=== PATIENT | female | born 1990 | race Caucasian/White ===

== ENCOUNTER 2019-03-21 07:36 | Inpatient (IN) | payer MEDICAID, OTHER ==
[2019-03-21] MEDS ORDERED: LACTATED RINGERS 1,000 ML ONE (08:29)
[2019-03-21] MEDS ORDERED: PITOCin/NS 20 UNIT/1000ML DRIP 20,000 MILLIUNITS/1,000 ML BAG IV ONE (08:30)
[2019-03-21] MEDS ORDERED: XYLOCAINE 2% INFILTRATI ONE (08:37)
[2019-03-21] MEDS ORDERED: MINERAL OIL PO PRN ×2 (08:37→10:30)
[2019-03-21] MEDS ORDERED: BRETHINE SUB-Q PRN ×2 (08:37→10:30)
[2019-03-21] MEDS ORDERED: BRETHINE IVP PRN ×2 (08:37→10:30)
--- NOTE | 2019-03-21 08:37 | History and Physical Report ---
History of Present Illness Date of examination: 03/21/19 Chief complaint: Labor History of present illness: Pt is a 28yo HF EDC 04/04/19; EGA 38 0/7 weeks presents to L&D complaining of RUC's q 3-4 mins and dilated 8cms. She received care at [facility] since 13 weeks and care was unremarkable. records are available and GBS is positive. Past History Past Medical History: no pertinent history Past Surgical History: no surgical history Social history: no significant social history, single - Obstetrical History Expected Date of Delivery: 04/04/19 Actual Gestation: 38 Week(s) 0 Day(s) : 3 Medications and Allergies Allergies Allergy/AdvReac Type Severity Reaction Status Date / Time No Known Allergies Allergy Unverified 01/18/15 01:34 Home Medications Medication Instructions Recorded Confirmed Last Taken Type Acetaminophen/Codeine 1 tab PO Q6H PRN #14 tab 01/18/15 Unknown Rx [Acetaminophen-Codeine #3 TAB] Ibuprofen [Motrin] 400 mg PO Q8H PRN #30 tablet 01/18/15 Unknown Rx Ondansetron [Zofran Odt] 4 mg PO Q6H #14 tab.rapdis 01/18/15 Unknown Rx Review of Systems All systems: negative - Vital Signs Vital signs: Vital Signs Pulse BP Pulse Ox 91 H 138/97 98 03/21/19 07:52 03/21/19 07:52 03/21/19 07:52 Temp Pulse Resp BP Pulse Ox 99.1 F 85 20 116/67 95 03/21/19 08:13 03/21/19 08:29 03/21/19 08:13 03/21/19 08:29 03/21/19 08:15 - Physical Exam Abdomen: Positive: normal appearance, soft Genitourinary (Female): Positive: normal external genitalia Uterus: Positive: enlarged - Obstetrical FHR: category 1 Uterine Contraction Monitor Mode: External Cervical Dilatation: 8 Cervical Effacement Percentage: 70 station: -1 Uterine Contraction Pattern: Regular Uterine Tone Measurement Phase: Contraction Uterine Contraction Intensity: Moderate Results Result Diagrams: 03/21/19 08:05 All other labs normal. Assessment and Plan - Patient Problems (1) 38 weeks gestation of Onset Date: 03/21/19 Current Visit: Yes Status: Acute Plan to address problem: A: IUP @ 38 0/7 weeks +GBS P: Admit to L&D for expectant vaginal delivery IV Ampicillin (2) GBS (group B Streptococcus carrier), +RV culture, currently Onset Date: 03/21/19 Current Visit: Yes Status: Acute
[2019-03-21 08:58] LABS: Hemoglobin 11.9 gm/dl (10.1-14.3); Mean Corpuscular HGB Conc 34 % (30-34); Mean Corpuscular Volume 90 fl (79-97); Platelet Count 206 K/mm3 (140-440); Red Blood Count 3.87 M/mm3 (3.65-5.03); Red Cell Distribution Width 13.4 % (13.2-15.2)
[2019-03-21] MEDS ORDERED: PITOCin/NS 30 UNIT/500ML 30 UNITS/500 ML BAG IV SCH ×2 (09:00)
[2019-03-21] MEDS ORDERED: LACTATED RINGERS 1,000 ML IV SCH ×2 (09:00)
[2019-03-21] MEDS ORDERED: PITOCin/NS 20 UNIT/1000ML DRIP 20 UNITS/1,000 ML BAG IV SCH ×3 (09:00→14:00)
[2019-03-21] MEDS ORDERED: XYLOCAINE 2% INFILTRATI NR (10:00)
[2019-03-21] MEDS ORDERED: STADOL IV PRN (10:30)
[2019-03-21] MEDS ORDERED: SUBLIMAZE IV PRN (10:30)
[2019-03-21] MEDS ORDERED: PHENERGAN PO PRN ×2 (10:30→13:28)
[2019-03-21] MEDS ORDERED: ZOFRAN IV PRN ×2 (10:30→13:28)
[2019-03-21] MEDS ORDERED: AMPICILLIN/NS 2 GM/100 ML 2 GM/100 ML BAG IV ONE (10:30)
[2019-03-21] MEDS ORDERED: METHERGINE IM ONE ×3 (11:19→15:40)
[2019-03-21] MEDS ORDERED: AMPICILLIN/NS 1 GM/50 ML 1 GM/50 ML BAG IV SCH (12:30)
--- NOTE | 2019-03-21 13:24 | Procedure Note ---
OB Delivery Note - Delivery Date of Delivery: 03/21/19 Surgeon: RIGO GARCIA Estimated blood loss: 300cc - Vaginal Delivery presentation: vertex Delivery position: OA Intrapartum events: PROM->1hr before delivery, meconium Delivery induction: none Delivery augmentation: rupture of membranes Delivery monitor: external FHT, external uterine Route of delivery: vacuum extraction Indicators for instrumentation: nonreassuring FHR tracing Delivery placenta: spontaneous Delivery cord: 3 umbilical vessels Episiotomy: none Delivery laceration: 2nd degree (perineal) Delivery repair: vicryl Anesthesia: local Delivery comments: Infant delivered OA with the aid of a vacuum, 2 pulls, no pop-offs, and placed on Mom's chest for [id number] bonding and delayed cord clamping, cut by Dad - Infant A at 1 minute: 8 at 5 minutes: 9 Infant Gender: Male ([id number])
[2019-03-21] MEDS ORDERED: TUCKS PAD TP PRN (13:28)
[2019-03-21] MEDS ORDERED: PHENERGAN PR PRN (13:28)
[2019-03-21] MEDS ORDERED: LANSINOH TP PRN (13:28)
[2019-03-21] MEDS ORDERED: TYLENOL PO PRN (13:28)
[2019-03-21] MEDS ORDERED: DULCOLAX PR PRN (13:28)
[2019-03-21] MEDS ORDERED: MILK OF MAGNESIA PO PRN (13:28)
[2019-03-21] MEDS ORDERED: BENADRYL PO PRN (13:28)
[2019-03-21] MEDS: NORCO 5/325 PO PRN (13:48)
[2019-03-21] MEDS ORDERED: SODIUM CHLORIDE FLUSH SYRINGE 10 ML IV SCH (14:00)
[2019-03-21] MEDS: IBUPROFEN PO SCH ×2 (18:27→23:57)
[2019-03-21] MEDS: FEOSOL PO SCH (22:09)
[2019-03-21] MEDS: COLACE PO SCH (22:09)
[2019-03-22 01:20] LABS: Hematocrit 29.8 % (30.3-42.9)
[2019-03-22] MEDS: IBUPROFEN PO SCH ×3 (05:26→20:31)
[2019-03-22] MEDS ORDERED: BOOSTRIX IM ONE (06:00)
--- NOTE | 2019-03-22 09:08 | Progress Note ---
Assessment and Plan A: day 1 S/P VAVD. Anemia secondary to and blood loss. Low back pain, possibly musculoskeletal. P: Continue iron supplementation. Will send urine C&S. Encouraged ambulation and use of pain medication. Subjective - Subjective Date of service: 03/22/19 Principal diagnosis: day 1 S/P VAVD Interval history: day 1 S/P VAVD. Doing well. Patient reports small amount of lochia. Patient is voiding without difficulty, ambulating well, tolerating a regular diet. Patient denies headache, chest pain, cough, shortness of breath, abdominal pain, leg pain, or heavy vaginal bleeding. Patient reports lower back pain. Patient reports: appetite normal, voiding normally, flatus, ambulating normally, no dizzy ambulation, no nauseated [place]: doing well Objective - Vital Signs Latest vital signs: Vital Signs Temp Pulse Resp BP BP Pulse Ox 03/22/19 07:55 98.5 F 76 16 88/51 96 03/22/19 04:20 98.6 F 83 18 118/72 98 03/21/19 23:40 98.3 F 88 18 126/75 98 03/21/19 20:40 98.5 F 90 18 109/61 97 03/21/19 15:00 98.8 F 65 16 128/75 96 03/21/19 14:45 97.2 F L 14 03/21/19 14:12 71 137/85 03/21/19 13:56 75 132/84 03/21/19 13:42 76 132/85 03/21/19 13:32 70 129/80 03/21/19 13:11 70 132/74 03/21/19 12:00 97.9 F 03/21/19 11:20 94 H 92 03/21/19 11:19 90 96 03/21/19 11:15 57 L 73 L 03/21/19 11:14 90 97 03/21/19 11:05 86 99 03/21/19 11:03 86 88 03/21/19 11:00 94 H 96 03/21/19 10:55 84 93 03/21/19 10:50 90 97 03/21/19 10:45 90 98 03/21/19 10:40 89 97 03/21/19 10:35 97 H 99 03/21/19 10:30 93 H 98 03/21/19 10:25 99 H 98 03/21/19 10:20 100 H 97 03/21/19 10:16 90 93 03/21/19 10:15 100 H 98 03/21/19 10:10 95 H 98 03/21/19 10:08 90 93 03/21/19 10:05 101 H 96 03/21/19 10:00 98.8 F 100 H 14 96 03/21/19 09:59 94 H 92 03/21/19 09:55 79 97 03/21/19 09:50 93 H 99 03/21/19 09:48 99 H 94 03/21/19 09:45 91 H 99 Intake and Output 03/21/19 03/22/19 03/22/19 23:59 07:59 15:59 Intake Total 120 120 Balance 120 120 Intake: Oral 120 120 Other: Total, Intake Amount 120 120 # Voids Indwelling Catheter 1 Void 1 1 - Exam Abdomen: Present: normal appearance, soft. Absent: distention, tenderness, guarding, rigidity Uterus: Present: normal, firm, fundal height below umbilicus. Absent: boggin ess, tenderness Extremities: Present: normal. Absent: tenderness, edema - Labs Labs: Abnormal lab results 03/22/19 Range/Units 01:01 Hgb 10.0 L (10.1-14.3) gm/dl Hct 29.8 L (30.3-42.9) %
[2019-03-22] MEDS: FEOSOL PO SCH ×2 (10:12→22:30)
[2019-03-22] MEDS: PRENATAL VITAMIN PO SCH (10:12)
[2019-03-22] MEDS: NORCO 5/325 PO PRN ×2 (10:13→16:42)
[2019-03-22] MEDS: COLACE PO SCH ×2 (10:13→22:30)
[2019-03-22] MEDS ORDERED: M-M-R II VACCINE SUB-Q ONE (13:28)
[2019-03-22 19:50] LABS: Bilirubin,Urine NEG (Negative); Blood,Urine MOD (Negative); Color,Urine Yellow (Yellow); Mucus,Urine FEW /HPF; Protein,Urine <15 mg/dL mg/dL (Negative); Urobilinogen,Urine < 2.0 mg/dL (<2.0)
[2019-03-23] MEDS: IBUPROFEN PO SCH ×2 (03:59→11:45)
[2019-03-23] MEDS: PRENATAL VITAMIN PO SCH (10:27)
[2019-03-23] MEDS: FEOSOL PO SCH (10:27)
[2019-03-23] MEDS: COLACE PO SCH (11:45)
[2019-03-23 15:22] VITALS: BP 105/66
--- NOTE | 2019-03-23 15:27 | Progress Note ---
Assessment and Plan A: day 2 S/P vacuum assisted vaginal delivery. Anemia secondary to and blood loss. P: Discharge patient home today. Discussed with patient in detail discharge instructions and warning signs. Advised patient to avoid intercourse, lifting and heavy housework, driving. Advised patient to follow up at [facility] in 6 weeks for exam. Advised patient to continue taking her vitamin and iron supplements at home. Patient voiced understanding of all instructions. Subjective - Subjective Date of service: 03/23/19 Principal diagnosis: day 2 S/P VAVD Interval history: day 2 S/P VAVD. Doing well. Patient reports small amount of lochia. Patient is voiding without difficulty, ambulating well, tolerating a regular diet. Pt. states lower back pain has resolved. Patient denies headache, chest pain, cough, dizziness, shortness of breath, abdominal pain, nausea or vomiting, leg pain, or heavy vaginal bleeding. Patient reports: appetite normal, voiding normally, pain well controlled, flatus, ambulating normally, no dizzy ambulation, no nauseated [place]: doing well Objective - Vital Signs Latest vital signs: Vital Signs Temp Pulse Resp BP BP Pulse Ox 03/23/19 15:21 98.2 F 69 16 105/66 98 03/23/19 08:25 99.0 F 71 16 113/70 99 03/23/19 01:26 98.6 F 81 18 97/54 97 03/22/19 16:42 110/67 03/22/19 15:54 97.6 F 74 18 96/48 97 Intake and Output 03/22/19 03/23/19 03/23/19 23:59 07:59 15:59 Intake Total 200 360 Balance 200 360 Intake: Oral 200 360 Other: Total, Intake Amount 200 120 # Voids Void 3 1 - Exam Abdomen: Present: normal appearance, soft. Absent: distention, tenderness, guarding, rigidity Uterus: Present: normal, firm, fundal height below umbilicus. Absent: bogginess, tenderness Extremities: Present: normal. Absent: tenderness, edema
--- NOTE | 2019-03-23 15:31 | Discharge Summary ---
<SHARONDA TOM - Last Filed: 03/23/19 15:33> Providers - Providers Date of Admission: 03/21/19 08:34 Date of discharge: 03/23/19 Attending physician: RIGO GARCIA None Primary care physician: RIGO GARCIA Hospitalization Reason for admission: active labor Delivery: vacuum extraction Episiotomy: none Laceration: 2nd degree Other procedures: none complications: none Discharge diagnosis: IUP at term delivered baby: male Pertinent studies: Labs Hospital course: Normal hospital course Condition at discharge: Good Disposition: DC-01 TO HOME OR SELFCARE - Discharge Diagnoses (1) Term delivered Status: Acute (2) Anemia due to blood loss Status: Acute Plan - Provider Discharge Summary Activity: routine, no sex for 6 weeks, no heavy lifting 4 weeks, no strenuous exercise Diet: routine Instructions: routine Additional instructions: Continue taking your vitamins and iron supplements at home. Call your doctor immediately for: * Fever > 100.5 * Heavy vaginal bleeding ( >1 pad per hour) * Severe persistent headache * Shortness of breath * Reddened, hot, painful area to leg or breast - Follow up plan Follow up: RIGO GACRIA MD [Primary Care Provider] - [address] Forms: [facility] Discharge Summary, Discharge Signature Page <MERVIN CHAMORRO - Last Filed: 03/27/19 19:08> Providers - Providers Date of Admission: 03/21/19 08:34 Attending physician: RIGO GARCIA Primary care physician: RIGO GARCIA Hospitalization Pertinent studies: Laboratory Tests 03/21/19 03/21/19 03/21/19 08:05 08:05 08:05 WBC 9.1 RBC 3.87 Hgb 11.9 Hct 35.0 MCV 90 MCH 31 MCHC 34 RDW 13.4 Plt Count 206 Urine Color Urine Turbidity Urine pH Ur Specific [place] Urine Protein Urine Glucose (UA) Urine Ketones Urine Blood Urine Nitrite Urine Bilirubin Urine Urobilinogen Ur Leukocyte Esterase Urine WBC (Auto) Urine RBC (Auto) U Epithel Cells (Auto) Urine Mucus RPR Nonreactive Hep Bs Antigen Blood Type B POSITIVE Antibody Screen Negative 03/21/19 03/22/19 03/22/19 08:25 01:01 19:32 WBC RBC Hgb 10.0 L Hct 29.8 L MCV MCH MCHC RDW Plt Count Urine Color Yellow Urine Turbidity Slightly-cloudy Urine pH 5.0 Ur Specific [place] 1.019 Urine Protein <15 mg/dl Urine Glucose (UA) Neg Urine Ketones Neg Urine Blood Mod Urine Nitrite Neg Urine Bilirubin Neg Urine Urobilinogen < 2.0 Ur Leukocyte Esterase Neg Urine WBC (Auto) 6.0 Urine RBC (Auto) 38.0 U Epithel Cells (Auto) 1.0 Urine Mucus Few RPR Hep Bs Antigen Non-reactive Blood Type Antibody Screen - Discharge Diagnoses (1) Anemia due to blood loss Status: Acute Plan - Provider Discharge Summary Additional instructions: [] Smoking cessation referral if applicable(refer to patient education folder for contact #) [] Refer to [facility] Booklet Call your doctor immediately for: * Fever > 100.5 * Heavy vaginal bleeding ( >1 pad per hour) * Severe persistent headache * Shortness of breath * Reddened, hot, painful area to leg or breast * Drainage or odor from incision. * Keep incision clean and dry at all times and follow doctor's instructions regarding bathing/showering
== END 2019-03-23 16:55 | disposition home or self-care (01) | DRG 807 ==
LOC: TRG 07:36 → LD 08:34 → OB 15:01
PROVIDERS: ADMIT Obstetrics & Gynecology; ATTEND Obstetrics & Gynecology
PROC: 10D07Z6 Extraction of Products of Conception, Vacuum, Via Natural or Artificial Opening (ICD-10-PCS; principal; 2019-03-21)
PROC: 0KQM0ZZ Repair Perineum Muscle, Open Approach (ICD-10-PCS; 2019-03-21)
PROC: 3E0234Z Introduction of Serum, Toxoid and Vaccine into Muscle, Percutaneous Approach (ICD-10-PCS; 2019-03-22)
DX: O99.824 Streptococcus B carrier state complicating childbirth (principal); Z37.0 Single live birth; O42.92 Full-term premature rupture of membranes, unspecified as to length of time between rupture and onset of labor; O76 Abnormality in fetal heart rate and rhythm complicating labor and delivery; O99.02 Anemia complicating childbirth; O77.0 Labor and delivery complicated by meconium in amniotic fluid; D50.0 Iron deficiency anemia secondary to blood loss (chronic); O70.1 Second degree perineal laceration during delivery; Z3A.38 38 weeks gestation of pregnancy; Z23 Encounter for immunization
CPT/HCPCS: 36415; 81001; 85014; 85018; 85027; 86592; 86706; 86850; 86900; 86901; 87086; G0378; J0290; J2210; J2590; J3010; J7120